=== PATIENT | male | born 1950 | race Caucasian/White ===

== ENCOUNTER 2018-04-12 11:54 | Inpatient (IN) | payer OTHER, SELFPAY ==
--- OUTSIDE RECORDS SUMMARY | 2018-04-12 11:57 | XMS REPORT ---
:1950 [facility] Address [address] [place] [address] Dr. Jeffery. [address] [place] [id number] Care Team Providers Name Role Phone DR BAR REDMOND Unavailable Unavailable Problems This patient has no known problems. Allergies, Adverse Reactions, Alerts This patient has no known allergies or adverse reactions. Medications This patient has no known medications. Encounters Start End Encounter Admission Attending Care Care Encounter Date/Time Date/Time Type Type Clinicians Facility Department ID 2017-12-29 2017-12-29 Emergency E ELVA REDMOND [facility] [id number] 17:36:00 18:30:00 BAR
[2018-04-12] MEDS ORDERED: ASPIRIN 81 MG CHEWABLE TABLET ONE (12:27)
[2018-04-12] MEDS ORDERED: NITROGLYCERIN 0.4 MG/TAB SL ONE (12:27)
--- NOTE | 2018-04-12 12:38 | ER ---
Nurse's Notes [facility] Name: Jordy Champagne Age: 67 yrs Sex: Male : 1950 Arrival Date: 04/12/2018 Time: 11:55 Bed 2 Private MD: Diagnosis: Acute Inferior Wall Myocardial Infarction Presentation: 04/12 12:05 Presenting complaint: Patient states: Tingling of bilateral arms mild shortness of jl7 breath and started sweating at 1115, denies pain and nausea. Transition of care: patient was not received from another setting of care. Onset of symptoms was April 12, 2018 at 11:15. Risk Assessment: Do you want to hurt yourself or someone else? Patient reports no desire to harm self or others. Initial Sepsis Screen: Does the patient meet any 2 criteria? No. Patient's initial sepsis screen is negative. Does the patient have a suspected source of infection? No. Patient's initial sepsis screen is negative. Care prior to arrival: None. 12:05 Method Of Arrival: Ambulatory jl7 12:05 Acuity: MEHNAZ 2 iw 12:25 Acuity: MEHNAZ 2 jl7 Triage Assessment: 12:35 General: Appears in no apparent distress. Behavior is calm, cooperative. iw Historical: - Allergies: 12:08 No Known Allergies; jl7 - Home Meds: 12:08 None [Active]; jl7 - PMHx: 12:08 None; jl7 - PSHx: 12:08 None; jl7 - Immunization history:: Adult Immunizations not up to date. - Social history:: Smoking status: Patient/guardian denies using tobacco. - Ebola Screening: : No symptoms or risks identified at this time. - Family history:: Brother has/had 68 yo brother. [place] 2 yrs ago. . - Hospitalizations: : No recent hospitalization is reported. Screenin:10 Abuse screen: Denies threats or abuse. Denies injuries from another. iw 12:30 Nutritional screening: No deficits noted. Tuberculosis screening: No symptoms or risk iw factors identified. Fall Risk None identified. Assessment: 12:30 Reassessment: Dr. Souza on phone speaking with Dr. Masterson, pt will go to cardiovascular lab director. iw 12:37 Reassessment: cardiovascular lab director nurse at bedside to receive pt, pt prepped by cardiovascular lab director team. iw Vital Signs: 12:08 BP 186 / 113; Pulse 84; Resp 16 S; Temp 97.6(O); Pulse Ox 100% on R/A; Weight 74.84 kg jl7 (R); Height 6 ft. 1 in. (185.42 cm) (R); Pain 0/10; 12:08 Body Mass Index 21.77 (74.84 kg, 185.42 cm) jl7 ED Course: 11:55 Patient arrived in ED. as 12:08 Triage completed. jl7 12:08 Arm band placed on right wrist. jl7 12:10 Dhiraj Masterson MD is Attending Physician. wa 12:15 Placed in gown. Bed in low position. Call light in reach. hall monitor on. Pulse ox tw2 on. NIBP on. 12:15 Inserted saline lock: 20 gauge in left antecubital area, using aseptic technique. Blood tw2 collected. 12:27 EKG done, by photogrammetric technician. reviewed by Dhiraj Masterson MD. at1 12:30 Primitivo Souza MD is Hospitalizing Provider. wa 12:33 X-ray completed. Portable x-ray completed in exam room. 1 12:36 XRAY Chest (1 view) In Process Unspecified. EDMS 12:36 No provider procedures requiring assistance completed. Patient admitted, IV remains in iw place. Administered Medications: 12:20 Drug: Aspirin Chewable Tablet 324 mg Route: PO; tw2 12:20 Drug: Nitroglycerin 0.4 mg Route: Sublingual; tw2 Outcome: 12:36 Decision to Hospitalize by Provider. wa 12:36 Admitted to Physical Therapist Aide accompanied by nurse, accompanied by tech, via stretcher, on iw monitor, with chart. 12:36 Condition: stable 12:36 Instructed on the need for admit. 12:37 Patient left the ED. hb 12:38 Patient left the ED. hb Signatures: Dispatcher [employer] EDMS Tova Sandra 1 Madison Mcpherson Irene, RN RN iw Henrietta Prado, chief engineer's helper EKG Tat1 Belinda Carver RN RN hb Monica Walter RN RN tw2 Walter Schaeffer RN RN 7 Dhiraj Masterson MD MD wa Corrections: (The following items were deleted from the chart) 12:25 12:05 Acuity: MEHNAZ 3 jl7 iw
--- NOTE | 2018-04-12 12:38 | EDPHYS ---
Physician Documentation [facility] Name: Jordy Champagne Age: 67 yrs Sex: Male : 1950 Arrival Date: 04/12/2018 Time: 11:55 Bed 2 Private MD: ED Physician Dhiraj Masterson HPI: 04/12 12:25 This 67 yrs old Male presents to ER via Ambulatory with complaints of wa Numbness Of Arm. 12:25 The patient or guardian complains of c/o sudden onset chest tightness and bilateral arm wa tingling and numbness. admits to breaking into cold sweat. began at 1115 hrs. came in via private auto. states feels a bit better as not sweating as much at the moment but admits to still having numbness in arms and some chest discomfort. denies h/o same in the past. 68 yo brother had an DC a couple years back. 12:42 The complaints affect the both arms. Context: The problem was sustained at work, wa resulted from unknown cause. Onset: The symptoms/episode began/occurred began at 1115 hrs. Arrived by private auto. Treatment prior to arrival includes: no previous treatment. Modifying factors: The symptoms are alleviated by nothing. the symptoms are aggravated by nothing. Associated signs and symptoms: Pertinent positives: nausea, numbness, tingling, sweating, SOB. Associated signs and symptoms: Pertinent negatives: decreased range of motion, erythema, fever, vomiting, weakness. Severity of symptoms: At their worst the symptoms were moderate, in the emergency department the symptoms have improved, moderately. The patient has not experienced similar symptoms in the past. The patient has not recently seen a physician. Historical: - Allergies: 12:08 No Known Allergies; jl7 - Home Meds: 12:08 None [Active]; jl7 - PMHx: 12:08 None; jl7 - PSHx: 12:08 None; jl7 - Immunization history:: Adult Immunizations not up to date. - Social history:: Smoking status: Patient/guardian denies using tobacco. - Ebola Screening: : No symptoms or risks identified at this time. - Family history:: Brother has/had 68 yo brother. DC 2 yrs ago. . - Hospitalizations: : No recent hospitalization is reported. ROS: 12:45 Constitutional: Negative for fever, chills, and weight loss, Eyes: Negative for injury, wa pain, redness, and discharge, ENT: Negative for injury, pain, and discharge, Neck: Negative for injury, pain, and swelling, Abdomen/GI: Negative for abdominal pain, nausea, vomiting, diarrhea, and constipation, Back: Negative for injury and pain, : Negative for injury, bleeding, discharge, and swelling, MS/Extremity: Negative for injury and deformity, Skin: Negative for injury, rash, and discoloration, Psych: Negative for depression, anxiety, suicide ideation, homicidal ideation, and hallucinations. 12:45 Cardiovascular: Positive for chest pain, Negative for orthopnea, palpitations, paroxysmal nocturnal dyspnea. 12:45 Respiratory: Positive for shortness of breath, Negative for hemoptysis, orthopnea. 12:45 Neuro: Positive for numbness, tingling, both upper extremities. 12:45 All other systems are negative. Exam: 12:47 Constitutional: This is a well developed, well nourished patient who is awake, alert, wa and in no acute distress. Head/Face: Normocephalic, atraumatic. Eyes: Pupils equal round and reactive to light, extra-ocular motions intact. Lids and lashes normal. Conjunctiva and sclera are non-icteric and not injected. Cornea within normal limits. Periorbital areas with no swelling, redness, or edema. ENT: Nares patent. No nasal discharge, no septal abnormalities noted. Tympanic membranes are normal and external auditory canals are clear. Oropharynx with no redness, swelling, or masses, exudates, or evidence of obstruction, uvula midline. Mucous membranes moist. Neck: Trachea midline, no thyromegaly or masses palpated, and no cervical lymphadenopathy. Supple, full range of motion without nuchal rigidity, or vertebral point tenderness. No Meningismus. Chest/axilla: Normal chest wall appearance and motion. Nontender with no deformity. No lesions are appreciated. Cardiovascular: Regular rate and rhythm with a normal S1 and S2. No gallops, murmurs, or rubs. Normal PMI, no JVD. No pulse deficits. Respiratory: Lungs have equal breath sounds bilaterally, clear to auscultation and percussion. No rales, rhonchi or wheezes noted. No increased work of breathing, no retractions or nasal flaring. Abdomen/GI: Soft, non-tender, with normal bowel sounds. No distension or tympany. No guarding or rebound. No evidence of tenderness throughout. Back: No spinal tenderness. No costovertebral tenderness. Full range of motion. Skin: Warm, dry with normal turgor. Normal color with no rashes, no lesions, and no evidence of cellulitis. MS/ Extremity: Pulses equal, no cyanosis. Neurovascular intact. Full, normal range of motion. Neuro: Awake and alert, GCS 15, oriented to person, place, time, and situation. Cranial nerves II-XII grossly intact. Motor strength 5/5 in all extremities. Sensory grossly intact. Cerebellar exam normal. Normal gait. Psych: Awake, alert, with orientation to person, place and time. Behavior, mood, and affect are within normal limits. Vital Signs: 12:08 BP 186 / 113; Pulse 84; Resp 16 S; Temp 97.6(O); Pulse Ox 100% on R/A; Weight 74.84 kg jl7 (R); Height 6 ft. 1 in. (185.42 cm) (R); Pain 0/10; 12:08 Body Mass Index 21.77 (74.84 kg, 185.42 cm) jl7 MDM: 12:10 Patient medically screened. ky 12:47 Differential diagnosis: concern for ACS. stat EK at bedside depicted acute inferior wa wall DC. code STEMI called. stat monitors, IV, ASA, nitro SL, CXR. spoke with cardiology Dr. Ellis. accepted pt immediately for PCI. Data reviewed: vital signs, nurses notes. Data interpreted: HR 84. acute inferior wall DC. Test interpretation: by ED physician or midlevel provider: ECG. 12:49 Test interpretation: by ED physician or midlevel provider: CXR: no acute process. ky Response to treatment: the patient's symptoms have markedly improved after treatment, BP post nitro SL admin 157/86. pt stable at time of transport to laborer heading. Physician consultation: Primitivo Souza MD. Admission orders: after a detailed discussion of the patient's condition and case, the admit orders are written by de. 04/12 12:24 Order name: Basic Metabolic Panel; Complete Time: 17:16 ky 04/12 12:24 Order name: CBC with Diff; Complete Time: 17:16 ky 04/12 12:24 Order name: LFT's; Complete Time: 17:16 04/12 12:24 Order name: NT PRO-BNP; Complete Time: 17:16 04/12 12:24 Order name: PT-INR; Complete Time: 17:17 04/12 12:24 Order name: Troponin (emerg Dept Use Only); Complete Time: 17:17 04/12 12:24 Order name: XRAY Chest (1 view); Complete Time: 17:17 04/12 12:24 Order name: EKG; Complete Time: 12:24 04/12 12:24 Order name: Cardiac monitoring; Complete Time: 12:33 04/12 12:24 Order name: EKG - Nurse/Tech; Complete Time: 12:34 04/12 12:24 Order name: IV Saline Lock; Complete Time: 12:34 04/12 12:24 Order name: Labs collected and sent; Complete Time: 12:34 04/12 12:24 Order name: O2 Sat Monitoring; Complete Time: 12:34 ky Administered Medications: 12:20 Drug: Aspirin Chewable Tablet 324 mg Route: PO; tw2 12:20 Drug: Nitroglycerin 0.4 mg Route: Sublingual; tw2 Disposition: 04/12/18 12:36 Hospitalization ordered by Primitivo Souza for Inpatient Admission. Preliminary diagnosis is Acute Inferior Wall Myocardial Infarction. - Bed requested for Intensive Care Unit. - Status is Inpatient Admission. hb - Condition is Stable. - Problem is new. - Symptoms have improved. UTI on Admission? No Critical care time excluding procedures: 12:50 Critical care time: Bedside Care: 15 minutes, Consultation: 5 minutes, Family wa Intervention: 10 minutes. Total time: 30 minutes Signatures: Dispatcher [employer] EDIA Belinda Carver RN RN Monica Walter RN RN tw2 Walter Schaeffer RN RN jl7 Dhiraj Masterson MD MD ky Corrections: (The following items were deleted from the chart) 12:37 12:36 Hospitalization Ordered by Primitivo Souza MD for Inpatient Admission. Preliminary hb diagnosis is Acute Inferior Wall Myocardial Infarction. Bed requested for Intensive Care Unit. Status is Inpatient Admission. Condition is Stable. Problem is new. Symptoms have improved. UTI on Admission? No. wa 12:38 12:37 04/12/2018 12:36 Hospitalization Ordered by Primitivo Souza MD for Inpatient hb Admission. Preliminary diagnosis is Acute Inferior Wall Myocardial Infarction. Bed requested for Intensive Care Unit. Status is Inpatient Admission. Condition is Stable. Problem is new. Symptoms have improved. UTI on Admission? No. hb
[2018-04-12] MEDS ORDERED: ATROPINE SULF 1 MG/10 ML SYR IV ONE (12:41)
[2018-04-12 12:42] LABS: Absolute Lymphocytes (CBC) 2.5 K/uL (0.7-4.9); Absolute Monocytes 0.7 K/uL (0.1-1.3); Absolute Neutrophil 4.5 K/uL (1.8-8.0); Basophils % 1.1 % (0-1.3); Eosinophils % 1.4 % (0-4.4); Hematocrit 44.7 % (39.6-49.0); Lymphocytes % 31.6 % (15.3-44.8); MCH 29.1 pg (27.0-35.0); MCV 86.1 fL (80-100); MPV 9.2 fL (7.6-11.3); Monocytes % 8.8 % (3.3-12.3); RBC Red Blood Cell Count 5.19 M/uL (4.33-5.43)
[2018-04-12] MEDS ORDERED: NITROGLYCERIN/D5W 25 MG/250 ML BTL IV ONE (12:42)
[2018-04-12] MEDS ORDERED: NA CHLORIDE 0.9% 50 ML ONE (12:42)
[2018-04-12] MEDS ORDERED: LIDOCAINE 1% MPF 30 ML VIAL ONE (12:43)
[2018-04-12] MEDS ORDERED: NA CHLORIDE 0.9% 1,000 ML ONE (12:43)
[2018-04-12] MEDS ORDERED: HEPA 1000U/500MLS 1,000 UNIT/500 ML BAG IV ONE (12:43)
[2018-04-12 12:44] LABS: Protime INR 1.03
--- NOTE | 2018-04-12 12:44 | RAD REPORT ---
EXAM DESCRIPTION: RAD - Chest Single View - 04/12/2018 12:36 pm CLINICAL HISTORY: CHEST PAIN Chest pain. COMPARISON: No comparisons FINDINGS: Portable technique limits examination quality. The lungs are grossly clear. The heart is normal in size. No displaced fractures. IMPRESSION: No acute intrathoracic process suspected.
[2018-04-12] MEDS ORDERED: MIDAZOLAM HCL 2 MG/2 ML INJ ONE (12:58)
[2018-04-12] MEDS ORDERED: FENTANYL CITR 100 MCG/2 ML ONE (12:59)
[2018-04-12 13:01] LABS: ALT/SGPT 32 U/L (12-78); AST/SGOT 19 U/L (15-37); Alkaline Phosphatase 136 U/L (45-117); BUN Blood Urea Nitrogen 17 mg/dL (7-18); Bicarbonate 27 mmol/L (21-32); Bilirubin Direct 0.1 mg/dL (0-0.2); Bilirubin Total 0.5 mg/dL (0.2-1.0); Glucose Level 368 mg/dL (74-106); NT PRO-BNP 231 pg/mL (<125); Potassium 4.3 mmol/L (3.5-5.1); Protein, Total 8.3 g/dL (6.4-8.2); Sodium Level 136 mmol/L (136-145); Troponin (Emerg Dept Use Only) < 0.02 ng/mL (0.0-0.045)
[2018-04-12] MEDS ORDERED: METOPROLOL TARTRATE 5 MG/5 ML INJ IV ONE ×3 (13:05→13:18)
[2018-04-12] MEDS ORDERED: cloNIDine HCl 0.1 MG TAB ONE (13:05)
[2018-04-12] MEDS ORDERED: PRASUGREL (EFFIENT) 10 MG TAB ONE (13:32)
--- OUTSIDE RECORDS SUMMARY | 2018-04-12 13:41 | XMS REPORT ---
:1950 [facility] Address [address] [place] [address] Dr. Jeffery. [address] [place] [id number] Care Team Providers Name Role Phone DR BAR REDMOND Unavailable Unavailable Problems This patient has no known problems. Allergies, Adverse Reactions, Alerts This patient has no known allergies or adverse reactions. Medications This patient has no known medications. Encounters Start End Encounter Admission Attending Care Care Encounter Date/Time Date/Time Type Type Clinicians Facility Department ID 2017-12-29 2017-12-29 Emergency E ELVA REDMOND [facility] [id number] 17:36:00 18:30:00 BAR
--- NOTE | 2018-04-12 13:53 | EKG ---
Test Date: 2018-04-12 Test Time: 12:14:14 Manager Bakery: HOSSEIN MEASUREMENT RESULTS: Intervals: Rate: 68 AK: 168 QRSD: 110 QT: 362 QTc: 384 Fountain: P: 65 AK: 168 QRS: 46 T: 94 INTERPRETIVE STATEMENTS: Normal sinus rhythm Incomplete left bundle branch block ST elevation, consider inferior injury or acute infarct ACUTE [place] / STEMI Consider right ventricular involvement in acute inferior infarct Abnormal ECG No previous ECG available for comparison Electronically Signed On 04-12-18 13:53:04 CDT by Primitivo Souza
[2018-04-12] MEDS ORDERED: ONDANSETRON 4 MG/2 ML VIAL IV PRN (14:55)
[2018-04-12] MEDS ORDERED: ACETAMINOPHEN 325 MG TABLET PO PRN (14:55)
[2018-04-12] MEDS ORDERED: ZOLPIDEM TARTRATE 5 MG TABLET PO PRN (14:55)
[2018-04-12] MEDS: NA CHLORIDE 0.9% 1,000 ML IV SCH (15:00)
[2018-04-12 15:02] VITALS: BMI 23.2
[2018-04-12] MEDS: MORPHINE 4 MG/ML SYR IV PRN ×2 (15:40→22:03)
--- NOTE | 2018-04-12 17:45 | P.HP ---
Certification for Inpatient Patient admitted to: Inpatient Practitioner: I am a practitioner with admitting privileges, knowledge of patient current condition, hospital course, and medical plan of care. Services: Services provided to patient in accordance with Admission requirements found in Title 42 Section 412.3 of the Code of Federal Regulations Patient History Date of Service: 04/12/18 Reason for admission: Chest pain, acute CT History of Present Illness: This is a 67-year-old male with no known past medical history who presented to the ER with chest pain on exertion, recurrent back strain. This morning around 10:30 a.m., he was working outside and realized he was sweating a lot, having numbness/tingling on his chest and hands bilaterally and just feeling uneasy overall. He stated that he never had any chest pain just on uneasiness He tried to get some air to cool down. His friend noted that he did not look well and suggested the come to the ER. In the ER, patient was found to have a ST elevation CT on EKG and was taken straight to the was catheterization lab. I saw the patient after what I catheterization, stent placement. At the time of my evaluation, patient was alert and oriented x3 in no acute distress and reported feeling "100% times better." Allergies No Known Allergies Allergy (Verified 04/12/18 13:37) - Past Medical/Surgical History Has patient received pneumonia vaccine in the past: No Diabetic: No -: former smoker -: former drinker - Family History Brother Notes: Pt thinks he may have had a stroke or mi, not sure - Social History Smoking Status: Former smoker Alcohol use: No CD- Drugs: No Caffeine use: Yes Place of Residence: Home Review of Systems General: Chills, Sweats, As per HPI Eyes: Unremarkable ENT: Unremarkable Respiratory: Unremarkable Cardiovascular: As per HPI Gastrointestinal: Unremarkable Genitourinary: Unremarkable Musculoskeletal: Unremarkable Integumentary: Unremarkable Neurological: Unremarkable Lymphatics: Unremarkable Physical Examination - Vital Signs Temperature: 97.6 F Blood Pressure: 166/109 Pulse: 103 Respirations: 17 Pulse Ox (%): 99 - Physical Exam General: Alert, In no apparent distress HEENT: Atraumatic, PERRLA, Mucous membr. moist/pink, EOMI, Sclerae nonicteric Neck: Supple, 2+ carotid pulse no bruit, No LAD, Without JVD or thyroid abnormality Respiratory: Clear to auscultation bilaterally, Normal air movement Cardiovascular: Regular rate/rhythm, Normal S1 S2 Gastrointestinal: Normal bowel sounds, No tenderness Musculoskeletal: No tenderness Integumentary: No rashes Neurological: Normal gait, Normal speech, Normal strength at 5/5 x4 extr, Normal tone, Normal affect - Studies Laboratory Data (last 24 hrs) 04/12/18 12:29: PT 12.2, INR 1.03 04/12/18 12:29: WBC 7.9, Hgb 15.1, Hct 44.7, Plt Count 248 04/12/18 12:29: Sodium 136, Potassium 4.3, BUN 17, Creatinine 1.10, Glucose 368 H, Total Bilirubin 0.5, AST 19, ALT 32, Alkaline Phosphatase 136 H Assessment and Plan - Problems (Diagnosis) (1) Acute CT, inferior wall Current Visit: Yes Status: Acute (2) Malignant hypertension Current Visit: Yes Status: Acute (3) Former smoker, stopped smoking many years ago Current Visit: Yes Status: Acute (4) Former consumption of alcohol Current Visit: Yes Status: Acute - Plan - Acute inferior wall CT s/p stent placement: Patient was taken straight to the catheterization lab from ER. He was found to have 100% blockage in RCA, a stent was placed. Postcatheterization, he was stable in the ICU. IV morphine p.r.n. for pain. Nitro p.r.n. over the High intensity statin started on patient. Beta-eulogio Aspirin 81 starting tomorrow Hold anticoagulation until tomorrow. Risk factors: Former smoker and heavy alcohol user in the past. Denies any form of smoking or alcohol consumption in the past 5 or 6 years. - Hypertension: Patient without diagnosis of hypertension, not on any prior medications. Will give p.r.n. medications for now. May or May not need blood pressure medications at discharge. - elevated blood sugars without a history of diabetes Will continue to monitor, sliding scale insulin. Will adjust as needed He does have a PCP, Dr. Pérez, though he has not been to see him in years. Will discuss outpatient follow up with Cardiology and primary care physician. He will need extensive education on diet and lifestyle modifications after discharge. DVT prophylaxis: Hold anticoagulation till tomorrow, Lovenox afterwards Diet: ADA, 1800 calories Disposition: Likely discharge tomorrow with outpatient followup with cardiology. - Advance Directives Does patient have a Living Will: No Does patient have a Durable POA for Healthcare: No
--- NOTE | 2018-04-12 18:15 | CON ---
Date of Consultation: 04/12/2018 Admitted through the emergency room for an acute MT today 04/12/2018. History Of Present Illness: The patient is a 67-year-old white male without any past medical history , who came in with severe chest pain, was found to have ST elevation inferiorly. He was given aspiri n and nitroglycerin sublingual and I was called to take him to the laborer powerhouse emergently. He was very hypertensive to blood pressure 224/110 when he came in. He denied palpitation or syncope. Past Medical History: Negative. Allergies: NONE. Review of Systems: Negative. Social History: Unremarkable. He does not smoke. Family History: Negative. Physical Examination: Vital Signs: His blood pressure was 224/110. Sinus rhythm. General: Moderate distress from pain. HEENT: Negative. Neck: Supple. No bruit. Chest: Clear to auscultation and percussion. Cardiac: Revealed a regular rhythm and rate with an S4 gallop. No murmurs or rubs. Abdomen: Benign. Extremities: Revealed no clubbing, cyanosis, or edema. Diagnostic Data: CBC was normal. His chemistries were normal. His first troponin was negative. Hi s BNP was 231. EKG showed acute inferior MT. Chest x-ray was negative. Impression And Plan: 1.Acute inferior myocardial infarction. 2.Severe hypertension, uncontrolled. We will treat his hypertension with clonidine, IV Lopressor. We will take him to the laborer powerhouse emergently to do a heart catheterization, define his coronary anatom y, and possibly intervene. The patient understands the risk and the benefit of the procedure and he agreed to proceed. CONNER Voice ID: [id number] Report ID: [id number]
[2018-04-12] MEDS: ATORVASTATIN 80 MG TAB PO SCH (20:06)
[2018-04-12] MEDS ORDERED: METOPROLOL TARTRATE 5 MG/5 ML INJ IV STA ×2 (21:53→22:07)
--- NOTE | 2018-04-13 00:57 | OP ---
Date of Procedure: 04/12/2018 Surgeon: Primitivo Souza MD Digital Pre Press Operator: Cris Stubbs. The patient will be admitted overnight. He will be eventually on Effient, aspirin, beta blockers, an d a statin. Procedure: Left heart catheterization, selective coronary arteriogram, left ventriculogram, angiopla sty and stent of the RCA. Indication: Acute inferior LA. Procedure In Detail: The patient was brought to the label rewinder from the emergency room. He was preppe d and draped in the routine sterile fashion after being consented. He received 2 mg of Versed for IV sedation. He was very hypertensive at 224/110, given 0.1 mg of clonidine, 50 mg of Lopressor IV 5 m inutes apart 5 mg each. He became normotensive. A 6-[place] sheath introduced in the right common fe moral artery. 6-[place] catheters were used to do the selective arteriogram of the left system and th e right system. He was found to have 40% to 50% LAD proximal, about 70% long OM1. Mild plaquing in the left main and distal LAD. He had a total RCA at mid level. LV gram was normal. We switched the gear into intervention, and we put a JR4 6-[place] guide into the RCA. A [place] wire was used to crop farm helper ss the lesion. The patient was pre-dilated with a 2.5 x 15 Emerge balloon at multiple sites, multipl e levels. Following that, a 24 x 3 Synergy stent was placed with 0% residual. The patient received intracoronary nitroglycerin, Angiomax. He was given 60 mg of Effient at the end of the procedure. A CT was adequate. Total Conscious Sedation: 45 minutes. Complications: None. Blood Loss: 5 cc. Final Diagnosis: Status post acute inferior myocardial infarction, status post emergency angioplasty and stent of the RCA. JOB/DENVER Voice ID: [id number] Report ID: [id number]
[2018-04-13 05:37] LABS: Absolute Lymphocytes (CBC) 1.8 K/uL (0.7-4.9); Absolute Neutrophil 10.4 K/uL (1.8-8.0); Basophils % 0.4 % (0-1.3); Hematocrit 38.6 % (39.6-49.0); Lymphocytes % 13.6 % (15.3-44.8); MCH 29.3 pg (27.0-35.0); MCV 85.8 fL (80-100); MPV 9.7 fL (7.6-11.3); Monocytes % 7.6 % (3.3-12.3)
[2018-04-13 05:58] LABS: Albumin 3.5 g/dL (3.4-5.0); Bilirubin Total 0.6 mg/dL (0.2-1.0); Potassium 4.5 mmol/L (3.5-5.1)
[2018-04-13] MEDS ORDERED: METOPROLOL XL 50 MG TAB PO SCH (06:00)
[2018-04-13] MEDS: NA CHLORIDE 0.9% 1,000 ML IV SCH (06:02)
[2018-04-13] MEDS: ASPIRIN EC 81 MG TAB PO SCH (09:24)
[2018-04-13] MEDS: PRASUGREL (EFFIENT) 10 MG TAB PO SCH (09:24)
[2018-04-13] MEDS ORDERED: GLUCAGON 1 MG/VIAL IM PRN (09:31)
[2018-04-13] MEDS ORDERED: D50W 25 GM/50 ML SYRINGE IV PRN (09:31)
[2018-04-13] MEDS: INSULIN -REGULAR HUMAN 50 UNIT/0.5 ML ML SQ SCH ×3 (11:52→20:01)
--- NOTE | 2018-04-13 14:36 | PN ---
Mr. Champagne seems to be comfortable. Right groin looks good. He had right coronary stent for acute ST -elevation inferior HI. He has underlying diabetes, not receiving any insulin or other medicines for diabetes. I think, he needs another day in the hospital for education about diabetes and starting m edications and to get him out of the ICU walking around. Very likely, he will be able to go home martha orrow. JORJE/DENVER Voice ID: [id number] Report ID: [id number]
--- NOTE | 2018-04-13 17:49 | P.PN ---
Subjective Date of Service: 04/13/18 Chief Complaint: Chest pain, acute MS Patient seen and examined at bedside. at bedside. Case discussed with Dr. Lehman and nursing staff. Patient resting comfortably in bed, no current complaints. He did have a few seconds of chest pressure, along with pause. Review of Systems As noted above Physical Examination - Vital Signs Temperature: 98.2 F Blood Pressure: 119/67 Pulse: 60 Respirations: 19 Pulse Ox (%): 97 - Physical Exam General: Alert, In no apparent distress HEENT: Atraumatic, PERRLA, EOMI Neck: Supple, JVD not distended Respiratory: Clear to auscultation bilaterally, Normal air movement Cardiovascular: Regular rate/rhythm, Normal S1 S2 Gastrointestinal: Normal bowel sounds, No tenderness Musculoskeletal: No tenderness Integumentary: No rashes, Other (Side of catheterization, without evidence of erythema. Clean, dry and intact) Neurological: Normal speech, Normal tone, Normal affect Lymphatics: No axilla or inguinal lymphadenopathy Assessment And Plan - Current Problems (Diagnosis) (1) Acute MS, inferior wall Onset Date: 04/13/18 Current Visit: Yes Status: Acute (2) Malignant hypertension Onset Date: 04/13/18 Current Visit: Yes Status: Acute (3) Former smoker, stopped smoking many years ago Current Visit: Yes Status: Acute (4) Former consumption of alcohol Current Visit: Yes Status: Acute - Plan - Acute inferior wall MS s/p stent placement: Patient was taken straight to the catheterization lab from ER. He was found to have 100% blockage in RCA, a stent was placed. Postcatheterization, he was stable in the ICU. IV morphine p.r.n. for pain. Nitro p.r.n. over the High intensity statin started on patient. Beta-eulogio being held due to bradycardia. Aspirin 81mg It seems that he does need a another procedure for stent placement. This will be done outpatient. He will need patient Risk factors: Former smoker and heavy alcohol user in the past. Denies any form of smoking or alcohol consumption in the past 5 or 6 years. - bradycardia Hold beta-blockers. - Hypertension: He has been on the lower and for his blood pressure. So we will hold her medications and monitor Patient without diagnosis of hypertension, not on any prior medications. Will give p.r.n. medications for now. May or May not need blood pressure medications at discharge. - newly diagnosed diabetes mellitus, type 2: A1c elevated at 10.1.Will continue to monitor, sliding scale insulin. Will adjust as needed At discharge, he will be discharged on oral diabetes medications with instructions to follow up with PCP. This is because patient has been noncompliant/not going to his primary care physician for a very long time. I can feel comfortable starting him on insulin in the hospital and him not following up with the primary care physician. I discussed with patient that he does need to be on insulin as his A1c is very elevated. Patient verbalized understanding and stated he will follow up with his primary care physician He will need diabetes education prior to discharge. He does have a PCP, Dr. Pérez, though he has not been to see him in years. Will discuss outpatient follow up with Cardiology and primary care physician. He will need extensive education on diet and lifestyle modifications after discharge. DVT prophylaxis: Lovenox Diet: ADA, 1800 calories Disposition: Transfer to the floor today. Discharge Plan: Home Plan to discharge in: 24 Hours
[2018-04-13] MEDS: ATORVASTATIN 80 MG TAB PO SCH (20:01)
[2018-04-13 21:01] VITALS: O2SAT 98
[2018-04-13] MEDS: MORPHINE 4 MG/ML SYR IV PRN (22:16)
[2018-04-14 06:10] LABS: Absolute Lymphocytes (CBC) 3.8 K/uL (0.7-4.9); Absolute Monocytes 1.6 K/uL (0.1-1.3); Absolute Neutrophil 9.2 K/uL (1.8-8.0); Basophils % 0.5 % (0-1.3); Eosinophils % 0.1 % (0-4.4); Hematocrit 38.9 % (39.6-49.0); Lymphocytes % 25.6 % (15.3-44.8); MCH 29.4 pg (27.0-35.0); MCV 86.8 fL (80-100); MPV 10.1 fL (7.6-11.3); Monocytes % 10.8 % (3.3-12.3); RBC Red Blood Cell Count 4.48 M/uL (4.33-5.43)
[2018-04-14 06:43] LABS: Albumin 3.3 g/dL (3.4-5.0); Bilirubin Total 0.8 mg/dL (0.2-1.0); Magnesium 2.2 mg/dL (1.8-2.4); Phosphorus 3.6 mg/dL (2.5-4.9); Potassium 4.7 mmol/L (3.5-5.1); Protein, Total 6.6 g/dL (6.4-8.2)
[2018-04-14] MEDS: PRASUGREL (EFFIENT) 10 MG TAB PO SCH (08:47)
[2018-04-14] MEDS: ASPIRIN EC 81 MG TAB PO SCH (08:47)
[2018-04-14] MEDS: INSULIN -REGULAR HUMAN 50 UNIT/0.5 ML ML SQ SCH ×2 (08:47→13:02)
--- NOTE | 2018-04-14 10:41 | P.DS ---
Admission Date: 04/12/18 Discharge Date: 04/14/18 Primary Care Provider: Dr. Pérez([place], [place]) Disposition: ROUTINE DISCHARGE Discharge Condition: GOOD Reason for Admission: Chest pain, acute KS Consultations: Cardiology-Dr. Souza Procedures: Heart catheterization: Date of Procedure: 04/12/2018 Surgeon: Primitivo Souza MD Procedure: Left heart catheterization, selective coronary arteriogram, left ventriculogram, angioplasty and stent of the RCA. Indication: Acute inferior KS. Procedure In Detail: He was found to have 40% to 50% LAD proximal, about 70% long OM1. Mild plaquing in the left main and distal LAD. He had a total RCA at mid level. LV gram was normal. A 24 x 3 Synergy stent was placed with 0% residual. The patient received intracoronary nitroglycerin, Angiomax. He was given 60 mg of Effient at the end of the procedure. ACT was adequate. Total Conscious Sedation: 45 minutes. Complications: None. Medical problem list: Acute Coronary Syndrome, heart catheterization showing 40-50% LAD stenosis proximally and 70% stenosis to the long OM1. Mild plaque in the left main and distal LAD also noted. Total RCA stenosis noted. Stent placed to the RCA. Hypertension Diabetes mellitus type 2, uncontrolled, new diagnosis A1c 10.1 History of tobacco and alcohol use Brief History of Present Illness: 67-year-old male presented emergency room with chest pain. Patient found to have ST elevation on EKG. Patient with acute Coronary Syndrome. Patient was admitted for treatment. Hospital Course: Patient found to have Acute Coronary Syndrome. Patient evaluated by Cardiology. Heart catheterization was recommended. Heart catheterization showed 40-50% LAD stenosis proximally and 70% stenosis to the long OM1. Mild plaque in the left main and distal LAD also noted. Total RCA stenosis noted. Stent placed to the RCA. Patient tolerated the procedure well. At discharge he is without any significant chest pain. At discharge, cardiology recommends to continue with aspirin 81 mg daily, Effient 10 mg one pill daily, Lipitor 80 mg 1 pill daily, and Toprol-XL 50 mg 1 pill daily. Patient will follow up with cardiology in 1 week. Patient will need heart catheterization to further address his other coronaries in 2 weeks. Patient has hypertension. At discharge patient will continue with Toprol-XL 50 mg 1 pill once daily. Recommendation is to maintain blood pressures less 150/ 80. Further adjustment can be done by cardiology. Patient found have diabetes mellitus type 2. This is a new diagnosis for him. A1c 10.1. At discharge he will continue with metformin 500 mg 1 pill twice daily. This can be increased to a 1000 mg 1 pill twice daily after 1-2 weeks if diabetes is not well controlled. Patient will follow up with his PCP to further monitor and address. Further adjustment in medication may be required. Recommendation is to maintain blood sugars less 140 fasting and less than 200 after meals. Further adjustment can be done by his PCP. Patient has hyperlipidemia. Patient will continue with Lipitor 80 mg daily. Tobacco and alcohol cessation addressed in detail. This can be further monitored and addressed by his PCP. Patient will need to limit his activities. Vital Signs/Physical Exam: Temp Pulse Resp BP Pulse Ox 98 F 67 18 147/88 H 98 04/14/18 08:00 04/14/18 08:00 04/14/18 08:00 04/14/18 08:00 04/14/18 08:00 General: Alert, In no apparent distress, Oriented x3, Cooperative HEENT: Atraumatic Neck: Supple Respiratory: Clear to auscultation bilaterally, Normal air movement Cardiovascular: Normal pulses, Regular rate/rhythm Gastrointestinal: Normal bowel sounds, Soft and benign, Non-distended, No tenderness, No masses, No rebound, No guarding Musculoskeletal: No erythema, No tenderness, No warmth Integumentary: No tenderness/swelling, No erythema, No warmth, No cyanosis Neurological: Normal speech, Normal strength at 5/5 x4 extr, Normal tone, Normal affect Lymphatics: No axilla or inguinal lymphadenopathy Laboratory Data at Discharge: WBC 14.7 K/uL (4.3-10.9) H 04/14/18 04:28 Hgb 13.2 g/dL (13.6-17.9) L 04/14/18 04:28 Hct 38.9 % (39.6-49.0) L 04/14/18 04:28 Plt Count 209 K/uL (152-406) 04/14/18 04:28 PT 12.2 SECONDS (9.5-12.5) 04/12/18 12:29 INR 1.03 04/12/18 12:29 Sodium 136 mmol/L (136-145) 04/14/18 04:28 Potassium 4.7 mmol/L (3.5-5.1) 04/14/18 04:28 BUN 28 mg/dL (7-18) H 04/14/18 04:28 Creatinine 1.20 mg/dL (0.55-1.3) 04/14/18 04:28 Glucose 264 mg/dL (74-106) H 04/14/18 04:28 Phosphorus Cancelled 04/14/18 05:00 Magnesium Cancelled 04/14/18 05:00 Total Bilirubin 0.8 mg/dL (0.2-1.0) 04/14/18 04:28 AST 316 U/L (15-37) H* 04/14/18 04:28 ALT 88 U/L (12-78) H 04/14/18 04:28 Alkaline Phosphatase 88 U/L (45-117) 04/14/18 04:28 Triglycerides 115 mg/dL (<150) 04/13/18 04:40 Cholesterol 163 mg/dL (<200) 04/13/18 04:40 HDL Cholesterol 44 mg/dL (40-60) 04/13/18 04:40 Cholesterol/HDL Ratio 3.70 04/13/18 04:40 Home Medications: Aspirin [Aspirin EC 81 MG] 81 mg PO DAILY #90 tablet. 04/14/18 Atorvastatin Calcium [Lipitor] 80 mg PO DAILY #30 tablet 04/14/18 Metformin HCl 500 mg PO BID #60 tablet 04/14/18 Metoprolol Succinate [Toprol Xl] 50 mg PO DAILY #30 tab 04/14/18 Prasugrel Hydrochloride [Effient*] 10 mg PO DAILY #30 tab 04/14/18 New Medications: Aspirin [Aspirin EC 81 MG] 81 mg PO DAILY #90 tablet. Atorvastatin Calcium [Lipitor] 80 mg PO DAILY #30 tablet Metformin HCl 500 mg PO BID #60 tablet Metoprolol Succinate [Toprol Xl] 50 mg PO DAILY #30 tab Prasugrel Hydrochloride [Effient*] 10 mg PO DAILY #30 tab Patient Discharge Instructions: 1. Patient will need to follow up his PCP in 1 week to follow up this hospitalization. 2. Patient found to have Acute Coronary Syndrome. Patient evaluated by Cardiology. Heart catheterization was recommended. Heart catheterization showed 40-50% LAD stenosis proximally and 70 % stenosis to the long OM1. Mild plaque in the left main and distal LAD also noted. Total RCA stenosis noted. Stent placed to the RCA. Patient tolerated the procedure well. At discharge he is without any significant chest pain. At discharge, cardiology recommends to continue with aspirin 81 mg daily, Effient 10 mg one pill daily, Lipitor 80 mg 1 pill daily, and Toprol-XL 50 mg 1 pill daily. Patient will follow up with cardiology in 1 week. Patient will need repeat heart catheterization to further address his other coronaries in 2 weeks. 3. Patient has hypertension. At discharge patient will continue with Toprol-XL 50 mg 1 pill once daily. Recommendation is to maintain blood pressures less 150/80. Further adjustment can be done by cardiology. 4. Patient found have diabetes mellitus type 2. This is a new diagnosis for him. A1c 10.1. At discharge he will continue with metformin 500 mg 1 pill twice daily. This can be increased to a 1000 mg 1 pill twice daily after 1-2 weeks if diabetes is not well controlled. Patient will follow up with his PCP to further monitor and address. Further adjustment in medication may be required. Recommendation is to maintain blood sugars less 140 fasting and less than 200 after meals. Further adjustment can be done by his PCP. 5. Patient has hyperlipidemia. Patient will continue with Lipitor 80 mg daily. 6. Tobacco and alcohol cessation addressed in detail. This can be further monitored and addressed by his PCP. 7. Patient will need to limit his activities until he is released by Cardiology. Diet: AHA Activity: Ad shannen Followup: Primitivo Souza MD [ACTIVE - CAN ADMIT] - (follow up as outpatient for stent placement) Time spent managing pt's care (in minutes): 55
[2018-04-14 13:22] VITALS: BP 164/88; TEMP 98
--- NOTE | 2018-04-14 16:10 | PN ---
Date of Progress Note: 04/14/[address] Vilchis's service on 04/12/2018 for an acute inferior [place]. I performed an emergency ang ioplasty and stent on his RCA, which was totally occluded. He has done very well for the last 48 michelle rs. Was found to have diabetes. He is being treated by Dr. Ramirez for that. From a cardiovascular standpoint, patient doing great. No cardiac symptoms. No telemetry changes. Right groin is intact. I will send him home on Lipitor, Effient, aspirin Toprol, and whatever diabetic medication Dr. Longo as chooses. He will be set up for April 28 to undergo a staged LAD and circumflex or OM stent t hen as an outpatient. The patient understands the risk and the benefit of the procedure and he agree s to proceed. JOB/DENVER Voice ID: [id number] Report ID: [id number]
== END 2018-04-14 14:01 | disposition home or self-care (01) | DRG 247 ==
LOC: ER 11:54 → OR 12:30 → 3RD-ICU 13:42 → 4TH 04-13 20:05
PROVIDERS: ADMIT Family Medicine; ATTEND Family Medicine
PROC: 4A023N7 Measurement of Cardiac Sampling and Pressure, Left Heart, Percutaneous Approach (ICD-10-PCS; principal; 2018-04-12)
PROC: 027034Z Dilation of Coronary Artery, One Artery with Drug-eluting Intraluminal Device, Percutaneous Approach (ICD-10-PCS; 2018-04-12)
PROC: B211YZZ Fluoroscopy of Multiple Coronary Arteries using Other Contrast (ICD-10-PCS; 2018-04-12)
PROC: B215YZZ Fluoroscopy of Left Heart using Other Contrast (ICD-10-PCS; 2018-04-12)
DX: I21.19 ST elevation (STEMI) myocardial infarction involving other coronary artery of inferior wall (principal); I10 Essential (primary) hypertension; I25.10 Atherosclerotic heart disease of native coronary artery without angina pectoris; Z87.891 Personal history of nicotine dependence; E11.65 Type 2 diabetes mellitus with hyperglycemia; E78.5 Hyperlipidemia, unspecified; I24.9 Acute ischemic heart disease, unspecified
CPT/HCPCS: 36415; 71045; 80048; 80053; 80061; 80076; 82962; 83036; 83735; 83880; 84100; 84484; 85025; 85347; 85610; 92928; 92941; 93005; 93458; 99285; C1725; C1893; J0583; J2250; J3010; J7030

== ENCOUNTER 2018-11-17 07:13 | Day surgery (SDC) | payer OTHER ==
[2018-11-15 13:55] LABS: Absolute Lymphocytes (CBC) 1.9 K/uL (0.7-4.9); Absolute Monocytes 0.6 K/uL (0.1-1.3); Absolute Neutrophil 3.5 K/uL (1.8-8.0); Basophils % 1.1 % (0-1.3); Eosinophils % 2.6 % (0-4.4); Lymphocytes % 31.1 % (15.3-44.8); MPV 9.2 fL (7.6-11.3); Monocytes % 9.7 % (3.3-12.3); RBC Red Blood Cell Count 4.49 M/uL (4.33-5.43)
--- NOTE | 2018-11-15 13:56 | RAD REPORT ---
EXAM DESCRIPTION: Geronimo Hoffman And Cheri (2 Views)11/15/2018 1:46 pm CLINICAL HISTORY: Preop carotid arteries catheterization COMPARISON: March 2018 FINDINGS: The lungs appear clear of acute infiltrate. The heart is normal size IMPRESSION: No acute abnormalities displayed
[2018-11-15 14:06] LABS: Protime INR 1.11
[2018-11-15 14:10] LABS: Potassium 4.4 mmol/L (3.5-5.1)
--- NOTE | 2018-11-15 15:14 | EKG ---
Test Date: 2018-11-15 Test Time: 13:38:25 Yoga Coordinator: SEKOU MEASUREMENT RESULTS: Intervals: Rate: 60 AL: 182 QRSD: 86 QT: 408 QTc: 408 [place]: P: 72 AL: 182 QRS: 9 T: -23 INTERPRETIVE STATEMENTS: Normal sinus rhythm Possible Inferior infarct, age undetermined Abnormal ECG Compared to ECG 04/29/2018 11:17:44 T-wave abnormality no longer present Possible ischemia no longer present Myocardial infarct finding still present Electronically Signed On 11-15-18 15:13:45 CDT by Primitivo Souza
--- OUTSIDE RECORDS SUMMARY | 2018-11-17 07:15 | XMS REPORT ---
:1950 [facility] Address [address] [place] [address] Dr. Jeffery. [address] [place] [address] Care Team Providers Name Role Phone DR BAR REDMOND Unavailable Unavailable Problems This patient has no known problems. Allergies, Adverse Reactions, Alerts This patient has no known allergies or adverse reactions. Medications This patient has no known medications. Encounters Start End Encounter Admission Attending Care Care Encounter Date/Time Date/Time Type Type Clinicians Facility Department ID 2017-12-29 2017-12-29 Emergency [facility] [id number] 17:36:00 18:30:00 BAR
[2018-11-17] MEDS ORDERED: NA CHLORIDE 0.9% 500 ML ONE (08:22)
[2018-11-17] MEDS ORDERED: HEPA 1000U/500MLS 1,000 UNIT/500 ML BAG IV ONE (08:56)
[2018-11-17] MEDS ORDERED: ATROPINE SULF 1 MG/10 ML SYR IV ONE (08:56)
[2018-11-17] MEDS ORDERED: FENTANYL CITR 100 MCG/2 ML ONE (09:06)
[2018-11-17] MEDS ORDERED: MIDAZOLAM HCL 2 MG/2 ML INJ ONE ×2 (09:06→09:13)
[2018-11-17 10:10] VITALS: TEMP 97.2
[2018-11-17 11:12] VITALS: BP 153/71; O2SAT 100
--- NOTE | 2018-11-17 19:04 | OP ---
Surgeon: Primitivo Souza MD Linux Server Administrator: Lina Bach. Reason For Admission: Carotid artery stenosis and abnormal carotid artery Doppler. Procedure Done: Selective bilateral carotid angiogram. Procedure In Detail: The patient was prepped and draped in the routine sterile fashion. Given Verse d for IV sedation. Access was obtained through the right common femoral artery with a 6-Mongolian sheat h. Angiography there was normal. Angio-Seal was used to close the case. A right Rachel catheter 6 -Mongolian was used to selectively cannulate the right common carotid artery and the left common carotid artery. The findings were 90% bilateral ICA, 70% ostial left common carotid artery, mild about 30% bilateral ostial external carotid artery stenosis. There were no complications. Blood Loss: 5 cc. Postoperative Diagnosis: Cardiovascular disease. Anesthesia: Total conscious sedation was 30 minutes. Plan: Bilateral CEA. JOB/DENVER Voice ID: [id number] Report ID: [id number]
== END 2018-11-17 11:29 | disposition home or self-care (01) ==
LOC: CCL 07:13
DX: I65.23 Occlusion and stenosis of bilateral carotid arteries (principal); I25.10 Atherosclerotic heart disease of native coronary artery without angina pectoris; E78.6 Lipoprotein deficiency; E11.9 Type 2 diabetes mellitus without complications; Z79.82 Long term (current) use of aspirin; Z79.84 Long term (current) use of oral hypoglycemic drugs; Z79.899 Other long term (current) drug therapy; Z87.891 Personal history of nicotine dependence; Z95.5 Presence of coronary angioplasty implant and graft
CPT/HCPCS: 93005; 85025; 80048; 36415; 85610; 82962; 85730; 71046; 36222; C1893; C1760; J2250 ×2; J3010

== ENCOUNTER 2020-05-16 06:37 | Day surgery (SDC) | payer OTHER ==
--- NOTE | 2020-05-14 12:22 | RAD REPORT ---
EXAM DESCRIPTION: Geronimo Hoffman And Cheri (2 Views)05/14/2020 12:14 pm CLINICAL HISTORY: Preop cardiac catheterization COMPARISON: 2019 FINDINGS: The lungs appear clear of acute infiltrate. The heart is mildly enlarged IMPRESSION: No acute abnormalities displayed
[2020-05-14 13:04] LABS: Absolute Lymphocytes (CBC) 2.3 K/uL (0.7-4.9); Hematocrit 36.6 % (39.6-49.0); Lymphocytes % 28.4 % (15.3-44.8); MPV 9.3 fL (7.6-11.3); RBC Red Blood Cell Count 4.33 M/uL (4.33-5.43)
[2020-05-14 13:08] LABS: Protime INR 1.08
[2020-05-14 13:23] LABS: Potassium 5.1 mmol/L (3.5-5.1)
--- OUTSIDE RECORDS SUMMARY | 2020-05-16 06:38 | XMS REPORT | Continuity of Care Document ---
:1950 Author Organization [facility] t Address [address] [place] [address] Dr. Jeffery. [address] [place] [address] Care Team Providers Name Role Phone DR NYLA Attending Clinician Unavailable DR NYLA Admitting Clinician Unavailable Problems This patient has no known problems. Allergies, Adverse Reactions, Alerts This patient has no known allergies or adverse reactions. Medications This patient has no known medications. Procedures This patient has no known procedures. Encounters Start End Encounter Admission Attending Care Care Encounter Source Date/Time Date/Time Type Type Clinicians Facility Department ID 2017-12-29 2017-12-29 Emergency E ELVA REDMOND [facility] [id number] [address] [place] [address] 17:36:00 18:30:00 [facility]ly [facility], [facility]–1983 Results This patient has no known results.
[2020-05-16] MEDS ORDERED: LIDOCAINE 1% 20 ML MDV ONE (07:00)
[2020-05-16] MEDS ORDERED: HEPA 1000U/500MLS 1,000 UNIT/500 ML BAG IV ONE (07:00)
[2020-05-16] MEDS ORDERED: NA CHLORIDE 0.9% 500 ML ONE (07:00)
[2020-05-16 08:10] VITALS: TEMP 97.3
[2020-05-16] MEDS ORDERED: MIDAZOLAM HCL 2 MG/2 ML INJ ONE ×2 (09:02→09:07)
[2020-05-16] MEDS ORDERED: NA CHLORIDE 0.9% 0 ML ONE (09:03)
[2020-05-16] MEDS ORDERED: FENTANYL CITR 100 MCG/2 ML ONE (09:03)
[2020-05-16] MEDS ORDERED: ATROPINE SULF 1 MG/10 ML SYR IV ONE (09:03)
--- NOTE | 2020-05-16 10:10 | OP ---
Date of Procedure: 05/16/2020 Surgeon: Primitivo Souza MD Aeronautical Project Engineer: Rahat Miles. The patient will be in the hospital for bedrest for about 2 hours and then I will send him home and boom brown outpatient surgical plans for him for his left carotid. Procedures: Left heart catheterization, selective coronary arteriogram, and selective bilateral jose tid angiogram. Indication: CAD, CVD, positive stress test and positive arterial Doppler. History Of Present Illness: Mr. Champagne is a 69-year-old white male, who has diabetes, hypertension, d yslipidemia. He is status post right carotid endarterectomy, status post stent in the RCA, OM, and L AD. Was noted to have atypical chest pain, positive stress test, abnormal carotid Doppler. Procedure In Detail: Brought to the laborer steel handling today as an outpatient, prepped and draped in the routi ne sterile fashion. Using the Seldinger technique and 10 cc of Xylocaine, we introduced a 6-Maldivian s radha in the right common femoral artery. Angiography there was normal. Angio-Seal was used to clos e the case. Heart catheterization was done within JL4 and JR4. The JL4 showed a patent left main, t he LAD stent proximal was normal. There was a 40% distal LAD stenosis. OM stent was normal. Circum flex was normal. There were noted collaterals to the RCA. A JR4 catheter was then used to cannulate the right main ostium, which was completely occluded. The JR4 was then moved selectively to the rig ht common carotid artery. Angiography there showed normal right ICA, normal right ECA, normal common carotid, patent site at the right carotid endarterectomy. The catheter was then moved to the left c ommon carotid. The interaction there showed a normal left common carotid, normal left external carot id, but he had about an 80% to 90% stenosis in the mid left internal carotid artery. There were no c omplications. Blood Loss: 5 mL. Anesthesia: Total conscious sedation was 45 minutes. Postoperative Diagnoses: Severe coronary artery disease, medical therapy, severe left ICA stenosis. He needs a left carotid endarterectomy. We will hold his Effient for now, continue the rest of the medicine. I will make arrangements for kimberly nur to have surgery in [place] in the near future. JOB/DENVER Voice ID: [id number] Report ID: [id number]
[2020-05-16 12:13] VITALS: O2SAT 99
[2020-05-16 12:14] VITALS: BP 156/74
== END 2020-05-16 12:59 | disposition home or self-care (01) ==
LOC: CCL 06:37
DX: I25.10 Atherosclerotic heart disease of native coronary artery without angina pectoris (principal); I25.82 Chronic total occlusion of coronary artery; I65.22 Occlusion and stenosis of left carotid artery; I10 Essential (primary) hypertension; E11.9 Type 2 diabetes mellitus without complications; E78.5 Hyperlipidemia, unspecified; Z95.5 Presence of coronary angioplasty implant and graft; Z20.828 Contact with and (suspected) exposure to other viral communicable diseases
CPT/HCPCS: 85025; 80048; 36415; 85610; 82947; 85730; 71046; 93455; 36222; U0002; C1893; C1760; J2250 ×2; J3010; J7040; J1644; 93454; J0583